=== PATIENT | male | born 1985 | race American Indian/Alaskan Native ===

== ENCOUNTER 2019-07-19 22:09 | Emergency (ER) | payer SELFPAY ==
[2019-07-20 00:11] VITALS: BP 113/69
[2019-07-20] MEDS ORDERED: HYDROGEN PEROXIDE 118 ML SOLUTION TP ONE ×2 (02:00→04:55)
--- NOTE | 2019-07-20 02:01 | Emergency Department Report ---
ED ENT HPI - General Chief complaint: Earache Stated complaint: RT EAR LOSS/EAR PAIN Time Seen by Provider: 07/20/19 01:31 Source: patient Mode of arrival: Ambulatory Limitations: Language Barrier - History of Present Illness Initial comments: This is a 34-year-old female male who presents the ED complaining of right ear pain for the past couple of days. Patient states that right ear is throbbing in nature is been aching for the past couple of days. Patient does note that he has had decreased hearing in the right side. Patient states the pain is worsened with chewing motion of the mouth. Patient denies any recent swimming, trauma or foreign objects to the ears. MD complaint: ear pain - Related Data Previous Rx's Medication Instructions Recorded Last Taken Type Amoxicillin [Amoxicillin TAB] 875 mg PO BID #14 tablet 07/20/19 Unknown Rx Carbamide Peroxide 6.5% [Ear Wax 1 - 2 drops OT BID #1 bottle 07/20/19 Unknown Rx Drops] Ibuprofen [Motrin] 800 mg PO Q8HR #30 tablet 07/20/19 Unknown Rx Allergies Allergy/AdvReac Type Severity Reaction Status Date / Time No Known Allergies Allergy Verified 07/19/19 22:13 ED Dental HPI - General Chief complaint: Earache Stated complaint: RT EAR LOSS/EAR PAIN Time Seen by Provider: 07/20/19 01:31 Source: patient Mode of arrival: Ambulatory Limitations: Language Barrier - Related Data Previous Rx's Medication Instructions Recorded Last Taken Type Amoxicillin [Amoxicillin TAB] 875 mg PO BID #14 tablet 07/20/19 Unknown Rx Carbamide Peroxide 6.5% [Ear Wax 1 - 2 drops OT BID #1 bottle 07/20/19 Unknown Rx Drops] Ibuprofen [Motrin] 800 mg PO Q8HR #30 tablet 07/20/19 Unknown Rx Allergies Allergy/AdvReac Type Severity Reaction Status Date / Time No Known Allergies Allergy Verified 07/19/19 22:13 ED Review of Systems ROS: Stated complaint: RT EAR LOSS/EAR PAIN Other details as noted in HPI Comment: All other systems reviewed and negative ED Past Medical Hx - Medications Home Medications: Home Medications Medication Instructions Recorded Confirmed Last Taken Type Amoxicillin [Amoxicillin TAB] 875 mg PO BID #14 tablet 07/20/19 Unknown Rx Carbamide Peroxide 6.5% [Ear Wax 1 - 2 drops OT BID #1 bottle 07/20/19 Unknown Rx Drops] Ibuprofen [Motrin] 800 mg PO Q8HR #30 tablet 07/20/19 Unknown Rx ED Physical Exam - General Limitations: Language Barrier General appearance: alert, in no apparent distress - Head Head exam: Present: atraumatic, normocephalic - Eye Eye exam: Present: normal appearance, PERRL Pupils: Present: normal accommodation - ENT ENT exam: Present: mucous membranes moist - Expanded ENT Exam Expanded Ear exam: Present: normal external inspection TM/Canal exam: Cerumen Impaction: Right TM, Left TM, Canal Tenderness: Right TM Mouth exam: Present: normal external inspection Teeth exam: Present: normal inspection Throat exam: Positive: normal inspection - Neck Neck exam: Present: normal inspection, full ROM. Absent: tenderness, lymphadenopathy - Respiratory Respiratory exam: Present: normal lung sounds bilaterally. Absent: respiratory distress - Cardiovascular Cardiovascular Exam: Present: regular rate, normal rhythm. Absent: systolic murmur, diastolic murmur, rubs, gallop - GI/Abdominal GI/Abdominal exam: Present: soft, normal bowel sounds - Rectal Rectal exam: Present: deferred - Extremities Exam Extremities exam: Present: normal inspection - Back Exam Back exam: Present: normal inspection - Neurological Exam Neurological exam: Present: alert, oriented X3 - Psychiatric Psychiatric exam: Present: normal affect, normal mood - Skin Skin exam: Present: warm, dry, intact, normal color. Absent: rash ED Course Vital Signs 07/19/19 22:23 Temperature 97.6 F Pulse Rate 53 L Respiratory 18 Rate Blood Pressure 113/69 O2 Sat by Pulse 97 Oximetry ED Medical Decision Making - Medical Decision Making 34-year-old male presents with right earache secondary to cerumen impaction. Ears were flushed and irrigated. Post irrigation ear exam: Shows no signs of infection. Moderate cerumen still intact. Discussed with patient to use [id number] Debrox earwax removal follow-up with ear ENT specialist. Critical care attestation.: If time is entered above; I have spent that time in minutes in the direct care of this critically ill patient, excluding procedure time. ED Disposition Clinical Impression: Impacted ear wax, Ear pain, right Disposition: [id number] TO HOME OR SELFCARE Is pt being admited?: No Does the pt Need Aspirin: No Condition: Stable Instructions: Cerumen Impaction (ED), Earache (ED) Additional Instructions: Make sure to follow up with the primary care physician as discussed. Take all your medications as you've been prescribed. If you have any worsening symptoms or develop new symptoms please return to ED immediately. Prescriptions: Amoxicillin [Amoxicillin TAB] 875 mg PO BID #14 tablet Carbamide Peroxide 6.5% [Ear Wax Drops] 1 - 2 drops OT BID #1 bottle Ibuprofen [Motrin] 800 mg PO Q8HR #30 tablet Referrals: PRIMARY CARE, [Primary Care Provider] - 3-5 Days [facility] [Outside] - 3-5 Days [facility] [Outside] - 3-5 Days Forms: Work/School Release Form(ED) Time of Disposition: 05:27
[2019-07-20] MEDS ORDERED: HYDROGEN PEROXIDE 118 ML SOLUTION ONE (04:37)
== END 2019-07-20 05:35 | disposition home or self-care (01) ==
LOC: ED 22:09
DX: H61.21 Impacted cerumen, right ear (principal); Z79.899 Other long term (current) drug therapy
CPT/HCPCS: 99282